=== PATIENT | male | born 1975 | race Caucasian/White ===

== ENCOUNTER 2019-08-08 15:22 | Emergency (ER) | payer MEDICAID ==
[2019-08-08 15:32] VITALS: BP 106/68
[2019-08-08] MEDS ORDERED: LIDOCAINE PATCH 5% TOP STA (16:12)
--- NOTE | 2019-08-08 16:13 | ED Physician Documentation ---
History of Present Illness - Stated complaint Stated Complaint: CHEST INJ - Chief complaint Chief Complaint: General - History obtained from History obtained from: Patient - History of Present Illness Timing: Yesterday Pain level max: 8 Pain level now: 8 - Additonal information Additional information: 44-year-old male presents to the emergency department with right anterior chest wall pain since yesterday. He states he had a birthday democrat yesterday and does not recall much of the democrat, awoke this morning with pain on the right side of the chest. Worse with palpation and movement. Better with rest. Review of Systems Constitutional: denies: Fever, Chills Throat: denies: Sore throat Cardiac: denies: Palpitations Respiratory: denies: Dyspnea, Cough, Hemoptysis, Wheezing GI: denies: Nausea, Vomiting, Diarrhea : denies: Dysuria Skin: denies: Rash Musculoskeletal: denies: Neck pain, Back pain Neurologic: denies: Headache, Head injury PD PAST MEDICAL HISTORY - Past Medical History Past Medical History: No - Past Surgical History Past Surgical History: No - Present Medications Home Medications: Ambulatory Orders Medication Instructions Recorded Confirmed Lidocaine Patch 5% [Lidoderm Patch] 1 patch TOP DAILY PRN #10 patch 08/08/19 Meloxicam [Mobic] 15 mg PO DAILY PRN #20 tablet 08/08/19 - Allergies Allergies/Adverse Reactions: Allergies Allergy/AdvReac Type Severity Reaction Status Date / Time No Known Drug Allergies Allergy Verified 08/08/19 15:28 PD ED PE NORMAL - Vitals Vital signs reviewed: Yes - General General: Alert and oriented X 3, No acute distress - HEENT HEENT: Moist mucous membranes - Neck Neck: Supple, no meningeal sign - Cardiac Cardiac: RRR - Respiratory Respiratory: No respiratory distress, Clear bilaterally, Other (Tender to palpation over the right anterior chest wall, approximately ribs 9 and 10. No ecchymosis. No crepitus. Normal exam Other than tenderness) - Derm Derm: Warm and dry - Neuro Neuro: Alert and oriented X 3 Results - Vitals Vitals: Vital Signs - 24 hr 08/08/19 15:28 Temperature 36.5 C Heart Rate 100 Respiratory 16 Rate Blood Pressure 106/68 O2 Saturation 96 Oxygen O2 Source Room air - Rads (name of study) Right rib with chest x-ray Radiology: Prelim report reviewed, EMP read contemporaneously, See rad report (No acute abnormalities) PD MEDICAL DECISION MAKING - ED course Complexity details: reviewed results, re-evaluated patient, considered differential, d/w patient ED course: Patient with a right chest wall contusion. Will place on NSAIDs and Lidoderm patches. No evidence of fracture on x-ray. No pneumothorax. No hemothorax. No pulmonary embolus. No ACS. Patient counseled regarding signs and symptoms for which I believe and urgent re-evaluation would be necessary. Patient with good understanding of and agreement to plan and is comfortable going home at this time This document was made in part using voice recognition software. While efforts are made to proofread this document, sound alike and grammatical errors may occur. Departure - Departure Disposition: 01 Home, Self Care Clinical Impression: Chest wall pain Condition: Good Instructions: ED Contusion Chest Wall Follow-Up: your,doctor in 1 week [Other] Prescriptions: Lidocaine Patch 5% [Lidoderm Patch] 1 patch TOP DAILY PRN #10 patch PRN Reason: pain Meloxicam [Mobic] 15 mg PO DAILY PRN #20 tablet PRN Reason: pain Comments: There are no fractures on your x-ray today. You can use the Lidoderm patches as needed. Do not wear them longer than 12 hours. They need to remain off your skin for 12 hours after being on for 12 hours. Return if you worsen. Discharge Date/Time: 08/08/19 16:47
--- NOTE | 2019-08-08 16:33 | XRAY Report ---
Reason: rib pain, R sided Procedure Date: 08/08/2019 Accession Number: [id number] / [id number] Procedure: XR - Ribs w/PA Chest RT CPT Code: Final Report FULL RESULT: EXAM: RIGHT RIB RADIOGRAPHY EXAM DATE: 08/08/2019 03:58 PM. CLINICAL HISTORY: Rib pain, R sided. COMPARISON: None. TECHNIQUE: 1 view of the chest and 2 views of the ribs. FINDINGS: LUNGS: The lungs are hypoventilatory with compressive changes. The aerated portions of the lungs are clear, however the lung bases are poorly evaluated. PLEURA: No significant pleural effusion. No clinically significant pneumothorax. MEDIASTINUM: The cardiomediastinal silhouette is unremarkable. BONES: No displaced acute fracture identified. IMPRESSION: 1. No acute fracture identified. 2. Expiratory chest x-ray. No acute disease within the limits of this study, however, the lung bases are poorly evaluated and cannot exclude a basilar process. RADIA
== END 2019-08-08 16:47 | disposition home or self-care (01) ==
LOC: ED 15:22
DX: S20.211A Contusion of right front wall of thorax, initial encounter (principal); X58.XXXA Exposure to other specified factors, initial encounter
CPT/HCPCS: 71101; 99283; 99284; A9270